=== PATIENT | female | born 1955 | race Caucasian/White ===

== ENCOUNTER 2018-02-17 14:41 | Emergency (ER) | payer OTHER ==
[~2018-02-17] VITALS: Ht 157.5 cm; Wt 62.1 kg
[~2018-02-17 14:41] MED LIST: ALBU90OI; AMOX50; CLON1 PO; LAMO100 PO; METH10; METH10 PO; MODA200; OXYC10ER; OXYC40ER; OXYC5 PO; Oxycodone HCl20 M1 PO; PROACE100; TRAZ50
[2018-02-17 15:38] LABS: BASOPHILS ABSOLUTE AUTO 0.01 K/mm3 (0.00-0.23); BASOPHILS PERCENT AUTO 0 % (0-2); EOSINOPHILS PERCENT AUTO 1 % (0-6); Hematocrit 42.1 % (33.0-51.0); Hemoglobin 14.5 g/dL (11.5-16.0); IMMATURE GRAN ABSOLUTE AUTO 0.02 K/mm3 (0.00-0.10); IMMATURE GRAN PERCENT AUTO 0 % (0-1); LYMPHOCYTES ABSOLUTE AUTO 2.72 K/mm3 (0.84-5.20); LYMPHOCYTES PERCENT AUTO 38 % (21-46); MONOCYTES ABSOLUTE AUTO 0.43 K/mm3 (0.16-1.47); MONOCYTES PERCENT AUTO 6 % (4-13); Mean Corpuscular HGB 32.8 pg (26.0-34.0); Mean Corpuscular HGB Conc 34.4 g/dL (31.5-36.5); Mean Corpuscular Volume 95 fL (80-100); Mean Platelet Volume 11.1 fL (9.1-12.4); NEUTROPHILS ABSOLUTE AUTO 3.89 K/mm3 (1.96-9.15); NEUTROPHILS PERCENT AUTO 54 % (41-73); Platelet Count 211 K/mm3 (150-400); RDW Coefficient Variation 12.2 % (11.7-14.2); RDW Standard Deviation 42.8 fL (35.1-46.3); Red Blood Cell Count 4.42 M/mm3 (3.80-5.20); White Blood Cell Count 7.17 K/mm3 (4.00-11.30)
[2018-02-17 15:56] LABS: Alanine Aminotransfer (ALT/SGP 59 U/L (12-78); Albumin, Blood 3.5 g/dL (3.4-5.0); Albumin/Globulin Ratio 0.8 (0.8-1.8); Alk Phos 85 U/L (50-136); Anion Gap 7 mmol/L (6-16); Aspartate Aminotrans (AST/SGOT 61 U/L (12-37); Bilirubin, Total 0.4 mg/dL (0.1-1.0); Blood Urea Nitrogen 8 mg/dL (8-24); Bun/Creatinine Ratio 11.6 (12.0-20.0); CO2, Blood 25 mmol/L (21-32); Calcium, Blood 9.2 mg/dL (8.5-10.1); Chloride, Blood 105 mmol/L (98-108); Creatinine, Blood 0.69 mg/dL (0.40-1.00); Globulin, Blood 4.6 g/dL (2.2-4.0); Glomerular Filtration Rate >60 (60-); Glucose, Blood 182 mg/dL (70-99); Potassium, Blood 3.1 mmol/L (3.5-5.5); Sodium, Blood 137 mmol/L (136-145); Total Protein, Blood 8.1 g/dL (6.4-8.2)
[2018-02-17] MEDS ORDERED: CLON2 PO (16:12)
[2018-02-17] MEDS ORDERED: FENT50TP TOP (16:14)
== END 2018-02-17 16:38 | disposition left against medical advice (07) ==
LOC: ER 14:41
PROVIDERS: Physician Assistant
DX: S52.572A Other intraarticular fracture of lower end of left radius, initial encounter for closed fracture (principal); S19.9XXA Unspecified injury of neck, initial encounter; S29.9XXA Unspecified injury of thorax, initial encounter; W11.XXXA Fall on and from ladder, initial encounter; Z88.5 Allergy status to narcotic agent; Z79.899 Other long term (current) drug therapy; Z79.891 Long term (current) use of opiate analgesic; I10 Essential (primary) hypertension; J44.9 Chronic obstructive pulmonary disease, unspecified; F17.210 Nicotine dependence, cigarettes, uncomplicated
CPT/HCPCS: 36415; 71101; 72125; 73110; 73130; 80053; 85025; 99284-25

== ENCOUNTER 2018-04-19 19:45 | Emergency (ER) | payer OTHER ==
[~2018-04-19] VITALS: Ht 157.5 cm; Wt 68.0 kg
[~2018-04-19 19:45] MED LIST changes: +CLON2 PO; +Catapres0.1 MG PO; +FENT50TP TOP; +LISI20 PO; +POTASSIUM99 MG PO
[2018-04-19 20:40] LABS: BASOPHILS ABSOLUTE AUTO 0.03 K/mm3 (0.00-0.23); BASOPHILS PERCENT AUTO 0 % (0-2); EOSINOPHILS ABSOLUTE AUTO 0.09 K/mm3 (0.00-0.68); EOSINOPHILS PERCENT AUTO 1 % (0-6); Hematocrit 39.9 % (33.0-51.0); Hemoglobin 13.9 g/dL (11.5-16.0); IMMATURE GRAN ABSOLUTE AUTO 0.07 K/mm3 (0.00-0.10); IMMATURE GRAN PERCENT AUTO 1 % (0-1); LYMPHOCYTES ABSOLUTE AUTO 5.49 K/mm3 (0.84-5.20); LYMPHOCYTES PERCENT AUTO 40 % (21-46); MONOCYTES ABSOLUTE AUTO 1.17 K/mm3 (0.16-1.47); MONOCYTES PERCENT AUTO 9 % (4-13); Mean Corpuscular HGB 33.3 pg (26.0-34.0); Mean Corpuscular HGB Conc 34.8 g/dL (31.5-36.5); Mean Corpuscular Volume 96 fL (80-100); Mean Platelet Volume 11.2 fL (9.1-12.4); NEUTROPHILS ABSOLUTE AUTO 6.77 K/mm3 (1.96-9.15); NEUTROPHILS PERCENT AUTO 50 % (41-73); Platelet Count 206 K/mm3 (150-400); RDW Coefficient Variation 12.5 % (11.7-14.2); RDW Standard Deviation 44.2 fL (35.1-46.3); Red Blood Cell Count 4.17 M/mm3 (3.80-5.20); White Blood Cell Count 13.62 K/mm3 (4.00-11.30)
[2018-04-19 21:00] LABS: Alanine Aminotransfer (ALT/SGP 45 U/L (12-78); Albumin, Blood 3.9 g/dL (3.4-5.0); Alk Phos 102 U/L (50-136); Anion Gap 11 mmol/L (6-16); Aspartate Aminotrans (AST/SGOT 24 U/L (12-37); Bilirubin, Total 0.3 mg/dL (0.1-1.0); Blood Urea Nitrogen 9 mg/dL (8-24); Bun/Creatinine Ratio 12.5 (12.0-20.0); CO2, Blood 21 mmol/L (21-32); Calcium, Blood 9.3 mg/dL (8.5-10.1); Chloride, Blood 105 mmol/L (98-108); Creatinine, Blood 0.72 mg/dL (0.40-1.00); Ethanol (Alcohol), Blood, Med <3 mg/dL; Globulin, Blood 3.9 g/dL (2.2-4.0); Glomerular Filtration Rate >60 (60-); Glucose, Blood 128 mg/dL (70-99); Potassium, Blood 2.6 mmol/L (3.5-5.5); Sodium, Blood 137 mmol/L (136-145); Total Protein, Blood 7.8 g/dL (6.4-8.2)
[2018-04-19] MEDS ORDERED: Depakene250 MG PO (21:15)
[2018-04-19] MEDS ORDERED: Prinivil10 MG PO (21:39)
== END 2018-04-19 21:46 | disposition home or self-care (01) ==
LOC: ER 19:45
PROVIDERS: Emergency Medicine
DX: F32.9 Major depressive disorder, single episode, unspecified (principal); F15.10 Other stimulant abuse, uncomplicated; F17.200 Nicotine dependence, unspecified, uncomplicated; Z88.5 Allergy status to narcotic agent; Z79.899 Other long term (current) drug therapy
CPT/HCPCS: 36415; 80053; 84443; 85025; 99285; G0480

== ENCOUNTER 2018-07-21 05:54 | Emergency (ER) | payer OTHER ==
[~2018-07-21 05:54] MED LIST changes: +Depakene250 MG PO; +Prinivil10 MG PO
== END 2018-07-21 06:26 | disposition left against medical advice (07) ==
LOC: ER 05:54
DX: Z53.21 Procedure and treatment not carried out due to patient leaving prior to being seen by health care provider (principal)

== ENCOUNTER 2018-08-28 06:07 | Emergency (ER) | payer OTHER ==
[~2018-08-28] VITALS: Ht 157.5 cm; Wt 63.5 kg
[2018-08-28] MEDS ORDERED: Veetids 500500 MG PO (07:27)
== END 2018-08-28 07:36 | disposition home or self-care (01) ==
LOC: ER 06:07
DX: I88.9 Nonspecific lymphadenitis, unspecified (principal); J02.9 Acute pharyngitis, unspecified; Z88.5 Allergy status to narcotic agent; Z79.899 Other long term (current) drug therapy; Z79.891 Long term (current) use of opiate analgesic; I10 Essential (primary) hypertension; J44.9 Chronic obstructive pulmonary disease, unspecified; F31.9 Bipolar disorder, unspecified; F17.200 Nicotine dependence, unspecified, uncomplicated
CPT/HCPCS: 70360; 71046; 99283-25

== ENCOUNTER 2019-07-16 16:00 | Inpatient (IN) | payer MEDICARE ==
[~2019-07-16] VITALS: Ht 157.5 cm; Wt 63.3 kg
[~2019-07-16 16:00] MED LIST changes: +Veetids 500500 MG PO
[2019-07-16 16:32] LABS: Hematocrit 37.9 % (33.0-51.0); Hemoglobin 12.1 g/dL (11.5-16.0); Mean Corpuscular HGB 30.9 pg (26.0-34.0); Mean Corpuscular HGB Conc 31.9 g/dL (31.5-36.5); Mean Corpuscular Volume 97 fL (80-100); Mean Platelet Volume 10.8 fL (9.1-12.4); Platelet Count 171 K/mm3 (150-400); RDW Coefficient Variation 14.7 % (11.7-14.2); RDW Standard Deviation 52.9 fL (35.1-46.3); Red Blood Cell Count 3.92 M/mm3 (3.80-5.20); White Blood Cell Count 2.41 K/mm3 (4.00-11.30)
[2019-07-16 16:46] LABS: Alanine Aminotransfer (ALT/SGP 36 U/L (12-78); Albumin, Blood 2.3 g/dL (3.4-5.0); Albumin/Globulin Ratio 0.5 (0.8-1.8); Alk Phos 88 U/L (50-136); Anion Gap 10 mmol/L (6-16); Aspartate Aminotrans (AST/SGOT 39 U/L (12-37); Bilirubin, Total 0.8 mg/dL (0.1-1.0); Blood Urea Nitrogen 18 mg/dL (8-24); Bun/Creatinine Ratio 24.1 (12.0-20.0); CO2, Blood 21 mmol/L (21-32); Calcium, Blood 10.4 mg/dL (8.5-10.1); Chloride, Blood 102 mmol/L (98-108); Creatinine, Blood 0.75 mg/dL (0.40-1.00); Glomerular Filtration Rate >60 (60-); Glucose, Blood 91 mg/dL (70-99); Potassium, Blood 3.4 mmol/L (3.5-5.5); Sodium, Blood 133 mmol/L (136-145); Total Protein, Blood 7.3 g/dL (6.4-8.2); Troponin I <0.015 ng/mL (0.000-0.040)
[2019-07-16 17:21] LABS: International Normalized Ratio 1.08; Prothrombin Time Results 11.5 Sec (9.7-11.5)
[2019-07-16 17:24] LABS: BAND PERCENT MAN 8 % (0-8); BASOPHILS PERCENT MAN 0 % (0-2); EOSINOPHILS PERCENT MAN 0 % (0-6); LYMPHOCYTES PERCENT MAN 17 % (21-46); MONOCYTES ABSOLUTE MAN 0.12 K/mm3 (0.16-1.47); MONOCYTES PERCENT MAN 5 % (4-13); NEUTROPHILS ABSOLUTE MAN 1.87 K/mm3 (1.96-9.15); SEG NEUTROPHILS PERCENT MAN 70 % (41-73); TOTAL CELLS COUNTED 100
[2019-07-16 18:46] LABS: Influenza A Negative (NEGATIVE); Influenza B Negative (NEGATIVE)
[2019-07-16] MEDS ORDERED: GABA300 (19:37)
[2019-07-17 03:57] LABS: BASOPHILS ABSOLUTE AUTO 0.05 K/mm3 (0.00-0.23); BASOPHILS PERCENT AUTO 1 % (0-2); Hematocrit 34.6 % (33.0-51.0); Hemoglobin 11.1 g/dL (11.5-16.0); LYMPHOCYTES ABSOLUTE AUTO 0.28 K/mm3 (0.84-5.20); LYMPHOCYTES PERCENT AUTO 5 % (21-46); MONOCYTES ABSOLUTE AUTO 0.29 K/mm3 (0.16-1.47); MONOCYTES PERCENT AUTO 5 % (4-13); Mean Corpuscular HGB 30.4 pg (26.0-34.0); Mean Corpuscular HGB Conc 32.1 g/dL (31.5-36.5); Mean Corpuscular Volume 95 fL (80-100); Mean Platelet Volume 11.3 fL (9.1-12.4); NRBC ABSOLUTE 0.02 K/mm3 (0.00-0.02); NRBC Auto 0.3 /100 WBC (0.0-0.2); Platelet Count 191 K/mm3 (150-400); RDW Coefficient Variation 14.8 % (11.7-14.2); RDW Standard Deviation 51.8 fL (35.1-46.3); Red Blood Cell Count 3.65 M/mm3 (3.80-5.20); White Blood Cell Count 6.08 K/mm3 (4.00-11.30)
[2019-07-17 03:58] LABS: EOSINOPHILS PERCENT AUTO 0 % (0-6); IMMATURE GRAN ABSOLUTE AUTO 0.04 K/mm3 (0.00-0.10); IMMATURE GRAN PERCENT AUTO 1 % (0-1); NEUTROPHILS ABSOLUTE AUTO 5.42 K/mm3 (1.96-9.15); NEUTROPHILS PERCENT AUTO 89 % (41-73)
[2019-07-17 04:15] LABS: Anion Gap 11 mmol/L (6-16); Blood Urea Nitrogen 14 mg/dL (8-24); Bun/Creatinine Ratio 21.6 (12.0-20.0); CO2, Blood 18 mmol/L (21-32); Calcium, Blood 9.4 mg/dL (8.5-10.1); Chloride, Blood 107 mmol/L (98-108); Creatinine, Blood 0.65 mg/dL (0.40-1.00); Glomerular Filtration Rate >60 (60-); Glucose, Blood 81 mg/dL (70-99); Potassium, Blood 3.6 mmol/L (3.5-5.5); Sodium, Blood 136 mmol/L (136-145)
[2019-07-17 04:21] LABS: BAND PERCENT MAN 23 % (0-8); BASOPHILS PERCENT MAN 0 % (0-2); EOSINOPHILS PERCENT MAN 0 % (0-6); LYMPHOCYTES ABSOLUTE MAN 0.42 K/mm3 (0.84-5.20); LYMPHOCYTES PERCENT MAN 7 % (21-46); METAMYELOCYTE ABSOLUTE MAN 0.06 K/mm3 (0.00-0.00); METAMYELOCYTE PERCENT MAN 1 % (0-0); MONOCYTES ABSOLUTE MAN 0.48 K/mm3 (0.16-1.47); MONOCYTES PERCENT MAN 8 % (4-13); SEG NEUTROPHILS PERCENT MAN 61 % (41-73); TOTAL CELLS COUNTED 100
--- NOTE | 2019-07-17 06:23 | NUR ---
PT ALERT. FOLLOWS COMMANDS, WEAK AT BASELINE. SINUS TACHY WITH PVC'S. SOB AND
[2019-07-17 07:56] LABS: Magnesium, Blood 1.6 mg/dL (1.6-2.4); Phosphorus, Blood 3.4 mg/dL (2.5-4.9)
--- NOTE | 2019-07-17 08:00 | NUR ---
INITIAL ASSESMENT PT ALEERT AND ORIENT, ANXIOUS BUT FOLLOWING COMMANDS. C/O GENERALIZED PAIN AND SUPPORT AND REPOSITIONED. VSS, ST WITH OCCASIONAL PVCS. HYPERTENSIVE AT TIMES AND AFEBRILE WITH PAPL PULSES. 6LNC WITH SATS WNL IN THE MID TO LOW 90S. NONPRODUCTIVE WET COUGH AND COURSE AND DIM BILAT. WILL WEAN O2 TOLERATED. VOID YELLOW URINE VIA BEDPAN AND NO BM. WILL ADVANCE DIET TOLERATED BUT TAKING PO AM MED PAS. WILL CONT TO MONITOR
--- NOTE | 2019-07-17 10:04 | NUR ---
ECHOCARDIOGRAM COMPLETED
[2019-07-17 11:50] LABS: Adenovirus Not Detected (NOT DETECT); Coronavirus 229E Not Detected (NOT DETECT); Coronavirus HKU1 Not Detected (NOT DETECT); Coronavirus NL63 Not Detected (NOT DETECT); Coronavirus OC43 Not Detected (NOT DETECT); Human Metapneumovirus Not Detected (NOT DETECT); Human Rhinovirus/Enterovirus Not Detected (NOT DETECT); Influenza A Not Detected (NOT DETECT); Influenza A/2009-H1 Not Detected (NOT DETECT); Influenza A/H1 Not Detected (NOT DETECT); Influenza A/H3 Not Detected (NOT DETECT)
[2019-07-17 11:51] LABS: Bordetella pertussis Not Detected (NOT DETECT); Chlamydophila pneumoniae Not Detected (NOT DETECT); Influenza B Not Detected (NOT DETECT); Mycoplasma pneumoniae Not Detected (NOT DETECT); Parainfluenza Virus 1 Not Detected (NOT DETECT); Parainfluenza Virus 2 Not Detected (NOT DETECT); Parainfluenza Virus 3 Not Detected (NOT DETECT); Parainfluenza Virus 4 Not Detected (NOT DETECT); Respiratory Syncytial Virus Not Detected (NOT DETECT)
--- NOTE | 2019-07-17 18:01 | NUR ---
SHIFT SUMMARY.... ASSUMED CARE OF PT APROX 1615, PT WAS ICU TRANSFER. PT WAS ABLE TO SCOOT HERSELF FROM THE ICU BED TO PCU BED. PT IS ON 4L NC WITH O2 SATS >91%. PT'S VS STABLE AT THIS TIME. PT IS A&Ox4. CALL LIGHT IN REACH WILL CONTINUE TO MONITOR UNTIL REPORT IS GIVEN TO ONCOMING RN.
[2019-07-18 04:03] LABS: Hematocrit 33.6 % (33.0-51.0); LYMPHOCYTES ABSOLUTE AUTO 0.36 K/mm3 (0.84-5.20); LYMPHOCYTES PERCENT AUTO 2 % (21-46); MONOCYTES ABSOLUTE AUTO 0.37 K/mm3 (0.16-1.47); MONOCYTES PERCENT AUTO 2 % (4-13); Mean Corpuscular HGB 31.1 pg (26.0-34.0); Mean Corpuscular HGB Conc 32.7 g/dL (31.5-36.5); Mean Corpuscular Volume 95 fL (80-100); Mean Platelet Volume 11.2 fL (9.1-12.4); Platelet Count 220 K/mm3 (150-400); RDW Coefficient Variation 15.1 % (11.7-14.2); RDW Standard Deviation 53.3 fL (35.1-46.3); Red Blood Cell Count 3.54 M/mm3 (3.80-5.20); White Blood Cell Count 15.47 K/mm3 (4.00-11.30)
[2019-07-18 04:10] LABS: BASOPHILS PERCENT AUTO 0 % (0-2); EOSINOPHILS PERCENT AUTO 0 % (0-6); IMMATURE GRAN ABSOLUTE AUTO 0.09 K/mm3 (0.00-0.10); IMMATURE GRAN PERCENT AUTO 1 % (0-1); NEUTROPHILS ABSOLUTE AUTO 14.65 K/mm3 (1.96-9.15); NEUTROPHILS PERCENT AUTO 95 % (41-73)
[2019-07-18 04:22] LABS: Albumin, Blood 2.3 g/dL (3.4-5.0); Anion Gap 10 mmol/L (6-16); Blood Urea Nitrogen 19 mg/dL (8-24); Bun/Creatinine Ratio 34.7 (12.0-20.0); CO2, Blood 20 mmol/L (21-32); Calcium, Blood 10.2 mg/dL (8.5-10.1); Chloride, Blood 106 mmol/L (98-108); Creatinine, Blood 0.55 mg/dL (0.40-1.00); Glomerular Filtration Rate >60 (60-); Glucose, Blood 145 mg/dL (70-99); Phosphorus, Blood 2.2 mg/dL (2.5-4.9); Potassium, Blood 3.4 mmol/L (3.5-5.5); Sodium, Blood 136 mmol/L (136-145)
--- NOTE | 2019-07-18 05:27 | NUR ---
SHIFT SUMMARY PT. VERY ANXIOUS AND PAINFUL T/O THE NIGHT. ATIVAN AND FENTANYL GIVEN PER EMAR. PT. STATED MINIMAL RELIEF WITH PAIN. RESTED INTERMITTENTLY T/O THE SHIFT. PT. TACHYPNEIC, BREATHING TX'S AND SCHEDULED MEDS GIVEN. SLIGHT IMPROVEMENT NOTED ONCE PT. ABLE TO FALL ASLEEP. PT. WEAK, UNSTEADY, AND HAS SOB WITH EXERTION. ATTEMPTED TO GET OOB DURING THE NIGHT W/O ASSISTANCE. CALL LIGHT WITHIN REACH, SIDE RAILS UP X2, AND BED ALARM ON. WILL CONT TO MONITOR.
--- NOTE | 2019-07-18 07:57 | NUR ---
AM NOTE... ASSUMED CARE OF PT APROX 0700, PT IS A&Ox4 BUT CONFUSED AT THE SAME TIME IT SEEMS. PT IS ACCUSING STAFF OF "KEEPING MY PAIN MEDS AWAY AND LYING ABOUT THEM." AND "YOU ALL ARE TAKING GREAT SAM IN MY SUFFERING." PT HAS ATTEMPTED TO CRAWL OUT OF BED TO "GO SEE MY SON DOWN THE ANG." PT IS ALSO REFUSING AM MEDS BECAUSE SHE FEELS STAFF ARE "ALL AGAINST ME." PT'S VS STABLE AT THIS TIME, SINUS TACH IN THE LOW 100'S PER HEAVY EQUIPMENT OPERATOR/PAVER, NO EDEMA NOTED ON ASSESSMENT. PT IS ON 3L NC WITH O2 SATS AT 93-94%. L/S FINE CRACKLES NOTED IN THE MID AND LOWER BASES, CLEAR IN THE UPPER LOBES. PT'S RR IS 26-30'S, EVEN AND A SLIGHTLY LABORED, PT IS ALSO MAKING MOANING/GRUNTING NOISES WITH BREATHING. PT HAS BEEN CALLING OUT "I WANT TO GO HOME I WANT TO GO HOME." CALL LIGHT IN REACH WILL CONTINUE TO MONITOR.
--- NOTE | 2019-07-18 13:30 | NUR ---
Karal pt. in bed and her nurse in the room attending to her needs offered prayers.
--- NOTE | 2019-07-18 14:42 | NUR ---
PT UPDATE... PT WAS GIVEN IV LASIX D/T BNP OF 1496 AND INCREASED SOB. PT BECAME VERY ANXIOUS WHEN SHE HAD TO VOID, PT JUMPED OUT OF BED, THE BEDALARM WENT OFF AND THIS RN RAN INTO THE ROOM. PT WAS YELLING AND SAYING SHE HAD TO PEE, BSC WAS OBTAINED FOR THE PT. PT SAT ON THE BSC AND BEGAN TO SAY THINGS LIKE: "I AM SO TIRED OF BEING IN PAIN ALL THE TIME, I JUST WANT TO GO HOME AND !" "I JUST WANT TO LEAVE THIS PLACE SO I CAN KILL MYSELF AND BE OUT OF PAIN!" THIS RN ASKED THE PT IF SHE HAD A PLAN TO KILL HERSELF, THE PT STATED THAT SHE DID NOT BUT THAT "I AM JUST SO TIRED OF HURTING ALL THE TIME. I AM JUST DONE, I WANT TO BE DONE." PT WAS HELPED BACK INTO BED AND MADE COMFORTABLE. PROVIDER WAS MADE AWARE OF PT'S COMMENTS AND NEW MEDICATION ORDERS WERE OBTAINED. PT HAS BEEN MEDICATED PER EMAR FOR PAIN AND ANXIETY, HOWEVER PT STATS THAT THE PAIN MEDICATIONS HARDLY TOUCH HER PAIN AT ALL. PT STATED "THE ONLY THING THAT WORKS FOR MY PAIN IS OXYCONTIN. " CALL LIGHT IN REACH WILL CONTINUE TO MONITOR.
--- NOTE | 2019-07-18 16:36 | NUR ---
Spoke with Dr Hubbard and Bedside RN Ember. Discussed case and concerns. Pt resting in bed and is A&OX4. Pt reports 6/10 pain. Pt reports she does not want to wear her oxygen right now. Currently she is on room air with saturations at 91%. Pt's son is at bedside and he reports Pt lives with him. Son is Pt's primary caregiver. At baseline Pt does not wear oxygen and is independent of her ADLs. Engaged in therapeutic discussion regarding [facility]. Educated on disease process including trajectory of disease. Educated on the importance of compliance with doctor recommendations and routine conversations with PCP regarding disease process in order to plan accordingly. Pt reports no intension of quitting smoking. Educated on the implications of continued smoking and speeding up the disease process. Pt V/U of education. Discussed completing POLST and educated on life sustaining measures including risk factors. Pt reports that she does not want CPR and would not want to be intubated. Son reports he and Pt will complete POLST together at a later time. Son also expresses concerns regarding wether Pt truly wants pain medications and states she took her self off pain medications quite sometime ago. No other concerns reported at this time. Palliative Care will remain available and [facility].
--- NOTE | 2019-07-18 17:05 | NUR ---
SHIFT SUMMARY... NO NEGATIVE EVENTS NOTED THIS SHIFT. PT WAS GIVEN LASIX AND HAS DIURESED WELL. PT'S O2 HAS BEEN TITRATED FROM 4L TO 2L AND RA AT TIMES. PT'S VS HAVE BEEN STABLE T/O SHIFT. PT'S SON HAS BEEN AT THE BEDSIDE THIS AFTERNOON. PT HAS BEEN IMPULSIVE ABOUT GETTING OUT OF BED AND WAITING ON STAFF, BED ALARM IS ON. MEDICATION CHANGES HAVE BEEN MADE IN AN ATTEMPT TO CONTROL THE PT'S CHRONIC AND ACUTE PAIN BETTER. PALLIATIVE CARE HAS BEEN INVOLVED WITH THE PT AND SON ABOUT CODE STATUS AND ADVANCE DIRECTIVES. CALL LIGHT IN REACH WILL CONTINUE TO MONITOR UNTIL REPORT IS GIVE TO ONCOMING RN.
--- NOTE | 2019-07-19 00:35 | NUR ---
1929 - BEDSIDE REPORT REC'D/ PT PLEASANT AND COOPERATIVE. ASKING ABOUT NIGHTIME MEDS AND PAIN MEDS. DISCUSSED PLAN FOR THE NIGHT. VSS. CALL LIGHT IN REACH. PT ASSISTED TO BSC. O2 NC IN PLACE. PT APPEARS GROGGY BUT ALERT, SPEECH SLOW AND SLURRED. CALL LIGHT IN REACH. 2114 - PT NAPPED FOR AN HOUR. THOUGHT IT WAS MORNING, WOKE UP FEELING RESTED. FAMILY HERE TO VISIT. PM MEDS GIVEN. PT ASSISTED TO BSC. PLEASANT AND FOLLOWS COMMANDS. SNACKS PROVIDED REQUESTED. 0000 - PT STATES SHE IS HAVING A PANIC ATTACK AND WANTS TO GO AROUND THE CORNER AND SMOKE. PT REORIENTED TO HOSPITAL ENVIORNMENT. SHE THEN BECOMES INTENT ON GOING HOME OR GOING TO SMOKE. SITTING AT EDGE OF BED WOBBLING AND REFUSES TO LIE BACK DOWN. OFFERED TO ASSIST HER TO BSC. SHE AGREES BUT CONTINUES TO SIT FOR 20 MIN NOT WANTING TO GO BACK TO BED. PT ASSISTED TO BED WITH HELP OF CREW FOREMAN. ATIVAN GIVEN FOR "PANIC ATTACK" PT STATES "WE ARE GOING TO HAVE PROBLEMS TONIGHT" SPEECH MUMBLED, EYES CLOSED, WEAK AND DOZES OFF BUT FIGHTS SLEEP. 0 - PT APPEARS TO BE SLEEPING. LIGHTS OFF. LYING ON SIDE WITH PILLOWS, NO LONGER LOOKING LIKE SHE'S GOING TO TRY TO GET OUT OF BED. ALARM IN PLACE. CALL LIGHT IN REACH. IV ABX INFUSING.
[2019-07-19 03:45] LABS: Hematocrit 31.1 % (33.0-51.0); Hemoglobin 10.2 g/dL (11.5-16.0); Mean Corpuscular HGB 30.9 pg (26.0-34.0); Mean Corpuscular HGB Conc 32.8 g/dL (31.5-36.5); Mean Corpuscular Volume 94 fL (80-100); Mean Platelet Volume 10.5 fL (9.1-12.4); Platelet Count 233 K/mm3 (150-400); RDW Coefficient Variation 14.8 % (11.7-14.2); RDW Standard Deviation 51.4 fL (35.1-46.3); White Blood Cell Count 17.69 K/mm3 (4.00-11.30)
[2019-07-19 04:04] LABS: Anion Gap 10 mmol/L (6-16); Blood Urea Nitrogen 30 mg/dL (8-24); Bun/Creatinine Ratio 38.1 (12.0-20.0); CO2, Blood 22 mmol/L (21-32); Calcium, Blood 10.2 mg/dL (8.5-10.1); Chloride, Blood 104 mmol/L (98-108); Creatinine, Blood 0.79 mg/dL (0.40-1.00); Glomerular Filtration Rate >60 (60-); Glucose, Blood 141 mg/dL (70-99); Potassium, Blood 3.6 mmol/L (3.5-5.5); Sodium, Blood 136 mmol/L (136-145)
[2019-07-19 05:31] LABS: BAND PERCENT MAN 2 % (0-8); BASOPHILS PERCENT MAN 0 % (0-2); EOSINOPHILS PERCENT MAN 0 % (0-6); LYMPHOCYTES ABSOLUTE MAN 0.53 K/mm3 (0.84-5.20); LYMPHOCYTES PERCENT MAN 3 % (21-46); MONOCYTES ABSOLUTE MAN 0.53 K/mm3 (0.16-1.47); MONOCYTES PERCENT MAN 3 % (4-13); NEUTROPHILS ABSOLUTE MAN 16.62 K/mm3 (1.96-9.15); SEG NEUTROPHILS PERCENT MAN 92 % (41-73); TOTAL CELLS COUNTED 100
--- NOTE | 2019-07-19 06:06 | NUR ---
NO SIG CHANGES THIS SHIFT. PT COOPERATIVE MOST OF THE NIGHT EXCEPT WHEN SHE WAS DETERMINED TO GO OUTSIDE AND SMOKE. LACTIC ACID WAS ELEVATED THIS MORNING SLIGHTLY FROM YESTERDAY. DR ORTIZ NOTIFIED WITH NO NEW ORDERS. WILL CONTINUE TO MONITOR, DOCUMENT ANY CHANGES AND WILL REPORT TO DAYSHIFT RN.
--- NOTE | 2019-07-19 07:39 | NUR ---
AM NOTE... ASSUMED CARE OF PT APROX 0700. PT IS A&Ox4 BUT CONFUSED/LABILE AT TIMES. PT WAS ADMITTED FOR SEPSIS PNA. PT IS CURRENLY ON 3L NC WITH O2 SATS AT 94%. PT'S BASELINE IS RA. PT'S OTHER VS STABLE AT THIS TIME. PT IS IN SR/ST W/PVCS 90'S-100'S. NO EDEMA NOTED ON ASSESSMENT. L/S COARSE RHONCHI HEARD T/O LOBES. RR 32 EVEN AND UNLABORED. BT PRESENT AND HYPOACTIVE, ABD IS SOFT AND NONTENDER TO PALP. WILL CONTINUE TO MONITOR.
--- NOTE | 2019-07-19 14:14 | NUR ---
Pt. in bed and her nurse in the room attending to her needs offered prayers
--- NOTE | 2019-07-19 19:03 | NUR ---
SHIFT SUMMARY.... NO ACUTE NEGATIVE CHANGES NOTED THIS SHIFT. PT'S VS STABLE. PT MEDICATED FOR PAIN PER EMAR. PT UP TO [facility] SBA TO VOID. NO BM THIS SHIFT. PT HAS BEEN ON 2-3L NC WITH O2 STATS >91%. CALL LIGHT IN REACH WILL CONTINUE TO MONITOR UNTIL REPORT IS GIVEN TO ONCOMING RN.
--- NOTE | 2019-07-19 21:26 | NUR ---
This student nurse has permission to access patient information/
--- NOTE | 2019-07-20 03:48 | NUR ---
EOS: PATIENT SLEPT THRU MUCH OF THE NOC SHIFT; SHE WAS VSS AND RECEVED ONLY HER SCHEDULED MEDS PER EMAR. SHE WAS FOUND TO BE DESATURATING TO 85% AROUND 0345AM AND RT WAS CALLED. SHE RECVD A BREATHING TREATMENT AND WAS PLACED ON 6L HI EDE N/C SHE THEN GOT OOB TO BSC AND VOIDED 450 ML. SHE HAD SOME SIPS OF WATER AND THEN BTB WITH ASSIST OF 2. SHE IS RESTING COMFORTABLY AT THIS TIME IN NO APPARENT DISTRESS.
[2019-07-20 03:55] LABS: Hematocrit 34.3 % (33.0-51.0); Hemoglobin 11.4 g/dL (11.5-16.0); Mean Corpuscular HGB 31.1 pg (26.0-34.0); Mean Corpuscular HGB Conc 33.2 g/dL (31.5-36.5); Mean Corpuscular Volume 94 fL (80-100); Mean Platelet Volume 10.9 fL (9.1-12.4); Platelet Count 266 K/mm3 (150-400); RDW Coefficient Variation 14.8 % (11.7-14.2); RDW Standard Deviation 51.6 fL (35.1-46.3); Red Blood Cell Count 3.66 M/mm3 (3.80-5.20); White Blood Cell Count 9.99 K/mm3 (4.00-11.30)
[2019-07-20 04:15] LABS: Anion Gap 8 mmol/L (6-16); Blood Urea Nitrogen 20 mg/dL (8-24); Bun/Creatinine Ratio 32.7 (12.0-20.0); CO2, Blood 28 mmol/L (21-32); Calcium, Blood 9.8 mg/dL (8.5-10.1); Chloride, Blood 98 mmol/L (98-108); Creatinine, Blood 0.61 mg/dL (0.40-1.00); Glomerular Filtration Rate >60 (60-); Glucose, Blood 83 mg/dL (70-99); Phosphorus, Blood 2.3 mg/dL (2.5-4.9); Potassium, Blood 3.2 mmol/L (3.5-5.5); Sodium, Blood 134 mmol/L (136-145)
[2019-07-20 05:37] LABS: BAND PERCENT MAN 1 % (0-8); BASOPHILS PERCENT MAN 0 % (0-2); EOSINOPHILS PERCENT MAN 0 % (0-6); LYMPHOCYTES ABSOLUTE MAN 1.19 K/mm3 (0.84-5.20); LYMPHOCYTES PERCENT MAN 12 % (21-46); MONOCYTES ABSOLUTE MAN 0.89 K/mm3 (0.16-1.47); MONOCYTES PERCENT MAN 9 % (4-13); MYELOCYTE ABSOLUTE MAN 0.19 K/mm3 (0.00-0.00); MYELOCYTE PERCENT MAN 2 % (0-0); NEUTROPHILS ABSOLUTE MAN 7.69 K/mm3 (1.96-9.15); SEG NEUTROPHILS PERCENT MAN 76 % (41-73); TOTAL CELLS COUNTED 100
--- NOTE | 2019-07-20 09:43 | NUR ---
PCU DAYSHIFT ASSUMED CARE PATIENT LETHARGIC - REMAINS DROWSY AND VERY SLOW TO RESPOND EVEN WITH TOUCH AND LOUD VERBAL STIMULATION. DISCUSSED FINDINGS WITH PROVIDER MD HERNANDEZ - MEDICATION CHANGED (SEE EMAR). PATIENT IS ON 7 LPM HIGH FLOW CANNULA, DEEPLY ASLEEP BUT CAN VERBALIZE THAT SHE IS IN THE HOSPITAL - UNABLE TO HOLD A CONVERSATION DUE TO SEDATION. LUNG SOUND CLEAR TO DIM - HR REMAINS 70'S NSR WITH NO EVENTS PER STEWARD/STEWARDESS CHIEF CARGO VESSEL. PATIENT SBA TO BEDSIDE COMMODE - DID GET UP AT APPROX 085 WITH PCU TECH. BED ALARM ON, CALL LIGHT W/I REACH; WILL CONTINUE TO MONITOR.
--- NOTE | 2019-07-20 17:35 | NUR ---
HIGH RISK SUICIDE PATIENT LETHARGIC AND REFUSED CARE T/O DAY. SI ASSESSMENT COMPLETED AND PATIENT VERBALIZED THAT SHE IS IN A CONSTANT STATE OF SI THOUGHTS AND PLANS. SITTER WITH PATIENT AND PATIENT TRANSFERED TO ROOM 3 FOR VIDEO MONITORING. TELE PSYC CONSULT PLACED MD HERNANDEZ NOTIFIED.
--- NOTE | 2019-07-20 19:04 | NUR ---
Clinical Visit: Brief visit with pt in follow up with symptom managment and POLST form. Pt has just switched rooms and is settling in. She appears drowsy, apparently she has slept all day. She now has a sitter in the room for suicide risk. Pt reports 8/10 pain, nurse is bedside and is giving medication. She also reports extreme anxiety. Pt has medical history of bipolar disorder and PTSD. Son has not been in today, per nurse. POLST form is not on chart or in the room. Will follow up with this tomorrow. Discussed with nurse Lela. Reviewed care and collaborated on care plan. Will remain available.
--- NOTE | 2019-07-20 19:36 | NUR ---
PCU DAYSHIFT SUMMARY PATIENT MORE ALERT AND AWAKE, SITTING ON SIDE OF BED. VERBALIZED SITUATION. ORIENTED TO SELF. REPORTS THAT PAIN IS ALMOST BERABLE AT 6/10 AFTER ULTRAM GIVEN. PATIENT STILL REFUSES TO TAKE A SHOWER - THIS RN JOKED WITH PATIENT THAT WE WOULD BE MAKING A SHOWER A PRIORITY IN THE AM. PATIENT EDUCATED TO SITTER AT BEDSIDE AND PLAN OF CARE DURING IN ROOM REPORT TO NOC SHIFT RN. PATIENT VERBALIZED UNDERSTANDING OF PLAN OF CARE. PATIENT TITRATED DOWN TO 3.5 LPM NC WHILE SITTING UP AT SIDE OF BED. HEART RATE REMAINS NSR 70-90'S WITH NO CARDIAC EVENTS NOTED PER MANAGER MASSAGE DEPARTMENT. PATIENT DENIES ANY NEEDS AT THIS TIME. CALL LIGHT W/I REACH.
--- NOTE | 2019-07-20 19:52 | NUR ---
RECEIVD REPORT FROM OMAR HERNANDEZ. ASSUMED CARE OF PT. SITTING UP ON EDGE OF BED IN NO ACUTE DISTRESS. DENIES ANY THOUGHTS OF SELF HARM AT THIS TIME. SITTER AT BEDSIDE. WILL CONTINUE TO MONITOR.
--- NOTE | 2019-07-21 03:30 | NUR ---
PT STATES SHE IS HAVING CP AND SOB. RESPIRATORY THERAPY CALLED FOR BREATHING TX. WILL CONTINUE TO MONITOR AND REASSESS.
[2019-07-21 03:45] LABS: Hematocrit 37.2 % (33.0-51.0); Hemoglobin 11.9 g/dL (11.5-16.0); Mean Corpuscular HGB 30.5 pg (26.0-34.0); Mean Corpuscular Volume 95 fL (80-100); Mean Platelet Volume 10.6 fL (9.1-12.4); Platelet Count 243 K/mm3 (150-400); RDW Coefficient Variation 14.8 % (11.7-14.2); RDW Standard Deviation 51.6 fL (35.1-46.3); White Blood Cell Count 9.75 K/mm3 (4.00-11.30)
[2019-07-21 03:57] LABS: Alanine Aminotransfer (ALT/SGP 46 U/L (12-78); Albumin, Blood 2.1 g/dL (3.4-5.0); Albumin/Globulin Ratio 0.4 (0.8-1.8); Alk Phos 202 U/L (50-136); Anion Gap 7 mmol/L (6-16); Aspartate Aminotrans (AST/SGOT 38 U/L (12-37); Bilirubin, Total 0.4 mg/dL (0.1-1.0); Blood Urea Nitrogen 15 mg/dL (8-24); Bun/Creatinine Ratio 29.9 (12.0-20.0); CO2, Blood 29 mmol/L (21-32); Calcium, Blood 9.6 mg/dL (8.5-10.1); Chloride, Blood 95 mmol/L (98-108); Globulin, Blood 4.8 g/dL (2.2-4.0); Glomerular Filtration Rate >60 (60-); Glucose, Blood 114 mg/dL (70-99); Magnesium, Blood 1.7 mg/dL (1.6-2.4); Phosphorus, Blood 3.2 mg/dL (2.5-4.9); Potassium, Blood 3.5 mmol/L (3.5-5.5); Sodium, Blood 131 mmol/L (136-145); Total Protein, Blood 6.9 g/dL (6.4-8.2)
--- NOTE | 2019-07-21 04:45 | NUR ---
PT ASLEEP COMFORTABLY AT THIS TIME, NO FURTHER S/S RESPIRATORY DISTRESS NOTED.
[2019-07-21 05:19] LABS: BAND PERCENT MAN 2 % (0-8); BASOPHILS PERCENT MAN 0 % (0-2); EOSINOPHILS ABSOLUTE MAN 0.09 K/mm3 (0.00-0.68); EOSINOPHILS PERCENT MAN 1 % (0-6); LYMPHOCYTES ABSOLUTE MAN 1.17 K/mm3 (0.84-5.20); LYMPHOCYTES PERCENT MAN 12 % (21-46); MONOCYTES ABSOLUTE MAN 0.78 K/mm3 (0.16-1.47); MONOCYTES PERCENT MAN 8 % (4-13); MYELOCYTE ABSOLUTE MAN 0.19 K/mm3 (0.00-0.00); MYELOCYTE PERCENT MAN 2 % (0-0); SEG NEUTROPHILS PERCENT MAN 75 % (41-73); TOTAL CELLS COUNTED 100
--- NOTE | 2019-07-21 07:45 | NUR ---
PT SITTING ON EDGE OF BED COMFORTABLY, NO SIGNS OF DISTRESS NOTED. WAS MONITORED EVERY 1-2 HOURS WITH NEEDS MET, DENIES ANY NEEDS AT THIS TIME. CALL LIGHT AND POSSESSIONS IN REACH, BED IN LOW POSITION.
--- NOTE | 2019-07-21 18:30 | NUR ---
PCU DAYSHIFT SUMMARY PATIENT REMAINED ALERT TO SELF AND LOCATION T/O SHIFT. PATIENT WAS WILLING AND ABLE TO GET UP AND SHOWER TODAY WHICH WAS A SUCCESS FOR THE PATIENT IT MADE HER FEEL BETTER. PATIENT IS CONTINUING TO COUGH UP RED/BROWN TINGED SPUTUM. RESP E/U AT REST. PATIENT REMAINS TO REQUIRE 3-4 LPM HIGH FLOW OXYGEN. PATIENT REPORTS ONGOING BACK PAIN AND HEADACHES - RELIEVED WITH MEDICATIONS PER EMAR. PATIENT REMAINED ON CONTINUOUS VIDEO MONITORING FOR SI T/O SHIFT. LUNGS SOUNDS CLEAR TO DIM. PATIENT REMAINS IN NSR IN THE 70-90'S T/O SHIFT. PATIENT RESTFUL AT THIS TIME, UP IN CHAIR. WILL CONTINUE TO MONITOR AND GIVE REPORT TO NOC SHIFT RN. CALL LIGHT W/I REACH.
--- NOTE | 2019-07-21 19:10 | NUR ---
CALLED ZAINAB IN REMOTE MONITORING. PT COMING THROUGH ON MONITOR AT THIS TIME.
--- NOTE | 2019-07-21 19:10 | NUR ---
RECEIVED REPORT FROM OMAR HERNANDEZ. ASSUMED CARE OF PT. IN NO ACUTE DISTRESS. RESTING COMFORTABLY AT THIS TIME. CALL LIGHT AND REACH, ENVIRONMENT FREE FROM HARMFUL OBJECTS. BED ALARM ACTIVATED. WILL CONTINUE TO MONITOR.
[2019-07-22 04:46] LABS: Hematocrit 33.9 % (33.0-51.0); Hemoglobin 10.7 g/dL (11.5-16.0); Mean Corpuscular HGB 30.2 pg (26.0-34.0); Mean Corpuscular HGB Conc 31.6 g/dL (31.5-36.5); Mean Corpuscular Volume 96 fL (80-100); Mean Platelet Volume 10.9 fL (9.1-12.4); Platelet Count 309 K/mm3 (150-400); RDW Coefficient Variation 14.6 % (11.7-14.2); RDW Standard Deviation 51.1 fL (35.1-46.3); Red Blood Cell Count 3.54 M/mm3 (3.80-5.20); White Blood Cell Count 10.39 K/mm3 (4.00-11.30)
[2019-07-22 05:10] LABS: Anion Gap 5 mmol/L (6-16); Blood Urea Nitrogen 17 mg/dL (8-24); Bun/Creatinine Ratio 33.6 (12.0-20.0); CO2, Blood 30 mmol/L (21-32); Chloride, Blood 98 mmol/L (98-108); Creatinine, Blood 0.51 mg/dL (0.40-1.00); Glomerular Filtration Rate >60 (60-); Glucose, Blood 94 mg/dL (70-99); Potassium, Blood 3.8 mmol/L (3.5-5.5); Sodium, Blood 133 mmol/L (136-145)
[2019-07-22 05:18] LABS: BAND PERCENT MAN 3 % (0-8); BASOPHILS PERCENT MAN 0 % (0-2); EOSINOPHILS PERCENT MAN 1 % (0-6); LYMPHOCYTES ABSOLUTE MAN 1.55 K/mm3 (0.84-5.20); LYMPHOCYTES PERCENT MAN 15 % (21-46); METAMYELOCYTE PERCENT MAN 2 % (0-0); MONOCYTES ABSOLUTE MAN 0.83 K/mm3 (0.16-1.47); MONOCYTES PERCENT MAN 8 % (4-13); MYELOCYTE PERCENT MAN 2 % (0-0); NEUTROPHILS ABSOLUTE MAN 7.48 K/mm3 (1.96-9.15); SEG NEUTROPHILS PERCENT MAN 69 % (41-73); TOTAL CELLS COUNTED 100
--- NOTE | 2019-07-22 05:45 | NUR ---
PT C/O SOB AND CHEST PAIN 02/20. O2 INCREASED TO 5L/NC. ASSISTED PT TO SIT UP AT EDGE OF BED IN POSITION OF COMFORT. O2 SATS STABLE >90%. WILL CONTINUE TO MONITOR.
--- NOTE | 2019-07-22 06:30 | NUR ---
PT ASLEEP AT THIS TIME, NO FURTHER S/S SOB OR CHEST PAIN NOTED. CALL LIGHT AND POSSESSIONS IN REACH, BED IN LOW POSITION WITH BED ALARM ACTIVATED.
--- NOTE | 2019-07-22 07:00 | NUR ---
PT REMAINS ASLEEP AT THIS TIME, NO S/S ACUTE DISTRESS NOTED. WAS MONITORED EVERY 1-2 HOURS WITH NEEDS MET. DENIES ANY NEEDS AT THIS TIME. CALL LIGHT AND POSSESSIONS IN REACH, BED IN LOW POSITION WITH BED ALARM ACTIVATED.
--- NOTE | 2019-07-22 17:55 | NUR ---
PCU DAYSHIFT SUMMARY PATIENT REMAINED ALERT AND ORIENTED TO SELF AND LOCATION T/O SHIFT. PATIENT REMAINED ON SI MONITORS T/O SHIFT. PATIENT DENIES THOUGHTS OF SELF HARM AT THIS TIME. PATIENT REMAINS ON 4 LPM NC AND CONTINUES TO HAVE COUGH W/ BROWN SPUTUM. PATIENT AMBULATES TO THE BATHROOM WITH STANDBY ASSIST. PATIENT HAS CHRONIC BACK PAIN- EGG CRATE PLACED ON BED FOR COMFORT. CALL LIGHT W/I REACH. WILL CONTINUE TO MONITOR.
--- NOTE | 2019-07-23 05:36 | NUR ---
SHIFT SUMMARY AOX4. VSS. REPORTS -02/20 PAIN ALLOVER BODY, MEDICATED W/ULTRAM & TYLENOL PER ORDERS & PT STATES RELIEF. DENIES N/V OR DYSPNEA @REST. CRACKLES HEARD ON AUSCULTATION TO BILAT LOWER LOBES, E/U RESPIRATIONS, SPO2 >90% ON 3.5 L O2, HAS PRODUCTIVE COUGH W/SMALL AMOUNT THICK RED-BROWN SPUTUM. DENIES SUICIDAL THOUGHTS OR PLANS & STATES "I WOULD NOT DO ANYTHING HERE AT THE HOSPITAL." ON MODERATE RISK PERCAUTIONS & 1:1 VIDEO MONITORING. CALL LIGHT IN REACH & I WCTM UNTIL DAY SHIFT RN ASSUMES CARE.
--- NOTE | 2019-07-23 17:39 | NUR ---
PT IS A&OX4, FOLLOWS COMMANDS. TODAY PT HAS DENIED ANY SUICIDAL THOUGHTS. ROOM RE-CHECKED AND MOD SUICIDE PRECAUTIONS FOLLOWED AND REMOTE MONITORING IN PLACE. LUNGS SOUNDS DIM THROUGH OUT AND CRACKLES IN BILAT BASES. WAS ABLE TO WEAN PT TO 1L NC OF OXYGEN TODAY TO MAINTAIN SPO2 >92%. VSS HAVE REMAINED STABLE. PT REPORTS CHRONIC BACK PAIN AND HEADACHE TREATED WITH PRN MEDS THROUGHOUT THE DAY WITH SOME IMPROVEMENT.
--- NOTE | 2019-07-23 18:14 | NUR ---
TRANSFER OF CARE REPORT CALLED TO OMAR MATHIS ON MEDICAL FLOOR. PT TO TRANSFER TO ROOM 348. BELONGINGS GATHERED AND TRANSFERRED WITH PT. RN NOTIFIED OF PT'S SUICIDE PRECAUTIONS.
--- NOTE | 2019-07-23 18:42 | NUR ---
SHIFT SUMMARY. 1840 PT ARRIVED TO MEDICAL FLOOR VIA W/C BY RN. REPORT RECIEVED PRIOR TO TRANSFER. MODERATE SI ROOM PRECAUTIONS COMPLETED PRIR TO TRANSFER. CAMERA ACTIVATION VERIFIED WITH BUSINESS PROCESS CONSULTANT.
--- NOTE | 2019-07-24 05:33 | NUR ---
DISTRIBUTION FIELD ENGINEER SUMMARY NO ACUTE CHANGES THIS SHIFT. PT AAOX4 AND PLEASANT. STANDBY ASSIST WITH AMBULATION. CALLS APPROPRIATELY FOR ASSISTANCE. REMAINS ON SI PRECAUTIONS AND MONITORED BY CAMERA MONITOR TECHS. TREATED FOR PAIN X2 WITH TRAMADOL PO FOR CHRONIC BACK PAIN. PT HYPERTENSIVE WITH MORNING VITALS. SBP 168. ATTEMPTED TO GIVE PT IV HYDRALAZINE PRN FOR SBP >160, HOWEVER PT POWER GLIDE NOT FUNCTIONING. CALLED DR MOYER TO GET ORDER CHANGED TO PO, HOWEVER DR MOYER STATED TO CONTINUE TO MONITOR AT THIS POINT AND TO NOTIFY HIM IF SBP EXCEEDED 180. PT REPORTS NO BM FOR 3 DAYS. PT RECIEVING COLACE BID. TOLD PT I WOULD ASK DR FOR BOWEL CARE ORDER INCLUDING MOM, DULCOLAX SUPP, OR POSSIBLE ENEMA. PT DENIED ALL OF THESE MEDS. OFFERED PRUNE JUICE WITH BUTTER DRINK MIX AND PT STATED "I THINK I'LL TRY THAT LATER IN THE MORNING". NO OTHER COMPLAINTS FROM PT. WILL CONTINUE TO MONITOR.
--- NOTE | 2019-07-24 08:38 | NUR ---
PT. PLEAASANT COPERATIVE ANS AT EASE.
--- NOTE | 2019-07-24 13:34 | NUR ---
Pt. is jean pierre well encouraged her and offered prayeres
--- NOTE | 2019-07-24 16:39 | NUR ---
NOTIFIED DR. BRADFORD PT. DENIES SI. APPEARS A&O WELL COOPERATIVE,
--- NOTE | 2019-07-24 17:20 | NUR ---
DR. BRADFORD DISCONTINUED PT'S SI PROTOCOL
--- NOTE | 2019-07-24 18:47 | NUR ---
PT. LYING QUIETLY, PT. TAKEN OUT OF SI PRECAUTIONS BY DR. MILLER. NO NOTEABLE CHANGES.
--- NOTE | 2019-07-25 05:27 | NUR ---
SHIFT SUMMARY PT IS A 64 Y/O FEMALE, ADMITTED WITH PNA. SHE IS A&O X 3, THOUGH CONFUSED/ FORGETFUL AT TIMES, AND INDEPENDENT UP TO THE BATHROOM. SHE WAS MEDICATED TWICE FOR GENERALIZED PAIN WITH PRN ULTRAM. NO COMPLAINTS OF NAUSEA OR SOB. PT SLEPT WELL DURING THE NIGHT. VITAL SIGNS STABLE. NO ACUTE CHANGES IN PT CONDITION NOTED. WILL CONTINUE TO MONITOR AND TREAT PER EMAR UNTIL HAND OFF TO DAY SHIFT RN.
--- NOTE | 2019-07-25 13:10 | NUR ---
Pt. is in bed resting, she reports doing well encouraged pt and offered prsyers .
[2019-07-25] MEDS ORDERED: ACET325 PO (13:43)
[2019-07-25] MEDS ORDERED: LISI20 PO (13:43)
[2019-07-25] MEDS ORDERED: LEVO750 PO (13:44)
[2019-07-25] MEDS ORDERED: LAMO25 PO (13:44)
[2019-07-25] MEDS ORDERED: METO50ER PO (13:45)
[2019-07-25] MEDS ORDERED: TRAM50 PO (13:45)
[2019-07-25] MEDS ORDERED: COMBIVENT RESPIM4 GM INH (13:45)
--- NOTE | 2019-07-25 16:00 | NUR ---
PT. DISCHARGED HOME WITH SON, MED LIST AND INSTRUCTIONS GIVEN. APPOINTMENT SET UP WITH NEW PCP. INSTRUCTED HER TO FILL OUT PAPER WORK BEFORE APPOINTMENT.
== END 2019-07-25 16:38 | disposition home or self-care (01) | DRG 871 ==
LOC: ER 16:00 → MEDS 21:04 → ICUE 21:04 → ICUW 21:04 → ICUE 21:43 → PCU 07-17 16:39 → MEDS 07-23 18:35
PROVIDERS: Emergency Medicine; Internal Medicine; Internal Medicine Critical Care Medicine; Physician Assistant; ADMIT Family Medicine
DX: A41.3 Sepsis due to Hemophilus influenzae (principal); J96.21 Acute and chronic respiratory failure with hypoxia; R65.21 Severe sepsis with septic shock; J14 Pneumonia due to Hemophilus influenzae; I47.2 Ventricular tachycardia; E87.1 Hypo-osmolality and hyponatremia; J44.1 Chronic obstructive pulmonary disease with (acute) exacerbation; J44.0 Chronic obstructive pulmonary disease with (acute) lower respiratory infection; Z66 Do not resuscitate; F31.9 Bipolar disorder, unspecified; M81.0 Age-related osteoporosis without current pathological fracture; Z86.59 Personal history of other mental and behavioral disorders; F17.210 Nicotine dependence, cigarettes, uncomplicated; E87.6 Hypokalemia
CPT/HCPCS: 0099U; 36415; 71045; 71046; 71260; 80048; 80053; 80069; 83605; 83690; 83735; 83880; 84100; 84484; 85025; 85610; 85730; 87040; 87070; 87077; 87185; 87186; 87205; 87804; 92526; 92610; 93005; 93010; 93306; 94640; 94644; 94760; 94761; 96361; 96365; 96375; 99285-25; A9270; A9270-GY; C1751; J0282; J0360; J0456; J0696; J1650; J1885; J1940; J1956; J2060; J2405; J2543; J2920; J2930; J3010; J3480; J7030; J7050; J7060; J7120; P9046; Q9967

== ENCOUNTER 2019-08-05 12:48 | Emergency (ER) | payer MEDICARE, OTHER ==
[~2019-08-05] VITALS: Ht 157.5 cm; Wt 57.0 kg
[~2019-08-05 12:48] MED LIST changes: +ACET325 PO; +COMBIVENT RESPIM4 GM INH; +GABA300; +LAMO25 PO; +LEVO750 PO; +METO50ER PO; +TRAM50 PO
[2019-08-05 14:35] LABS: BASOPHILS ABSOLUTE AUTO 0.04 K/mm3 (0.00-0.23); BASOPHILS PERCENT AUTO 0 % (0-2); EOSINOPHILS ABSOLUTE AUTO 0.15 K/mm3 (0.00-0.68); EOSINOPHILS PERCENT AUTO 1 % (0-6); Hemoglobin 12.8 g/dL (11.5-16.0); IMMATURE GRAN ABSOLUTE AUTO 0.14 K/mm3 (0.00-0.10); IMMATURE GRAN PERCENT AUTO 1 % (0-1); LYMPHOCYTES ABSOLUTE AUTO 3.59 K/mm3 (0.84-5.20); LYMPHOCYTES PERCENT AUTO 32 % (21-46); MONOCYTES ABSOLUTE AUTO 1.03 K/mm3 (0.16-1.47); MONOCYTES PERCENT AUTO 9 % (4-13); Mean Corpuscular HGB Conc 32.8 g/dL (31.5-36.5); Mean Corpuscular Volume 94 fL (80-100); Mean Platelet Volume 9.8 fL (9.1-12.4); NEUTROPHILS ABSOLUTE AUTO 6.15 K/mm3 (1.96-9.15); NEUTROPHILS PERCENT AUTO 55 % (41-73); Platelet Count 456 K/mm3 (150-400); RDW Coefficient Variation 13.5 % (11.7-14.2); Red Blood Cell Count 4.13 M/mm3 (3.80-5.20)
[2019-08-05 15:01] LABS: Alanine Aminotransfer (ALT/SGP 23 U/L (12-78); Albumin, Blood 3.2 g/dL (3.4-5.0); Albumin/Globulin Ratio 0.5 (0.8-1.8); Alk Phos 165 U/L (50-136); Anion Gap 7 mmol/L (6-16); Aspartate Aminotrans (AST/SGOT 23 U/L (12-37); Bilirubin, Total 0.3 mg/dL (0.1-1.0); Blood Urea Nitrogen 14 mg/dL (8-24); Bun/Creatinine Ratio 22.8 (12.0-20.0); CO2, Blood 25 mmol/L (21-32); Chloride, Blood 103 mmol/L (98-108); Creatinine, Blood 0.62 mg/dL (0.40-1.00); Globulin, Blood 6.2 g/dL (2.2-4.0); Glomerular Filtration Rate >60 (60-); Glucose, Blood 115 mg/dL (70-99); Potassium, Blood 4.3 mmol/L (3.5-5.5); Sodium, Blood 135 mmol/L (136-145); Total Protein, Blood 9.4 g/dL (6.4-8.2); Troponin I <0.015 ng/mL (0.000-0.040)
[2019-08-05] MEDS ORDERED: LEVO750 PO (15:55)
== END 2019-08-05 16:11 | disposition home or self-care (01) ==
LOC: ER 12:48
PROVIDERS: Physician Assistant
DX: J18.9 Pneumonia, unspecified organism (principal); J44.9 Chronic obstructive pulmonary disease, unspecified; I10 Essential (primary) hypertension; F31.9 Bipolar disorder, unspecified; F17.210 Nicotine dependence, cigarettes, uncomplicated; Z88.5 Allergy status to narcotic agent; Z79.899 Other long term (current) drug therapy
CPT/HCPCS: 36415; 71046; 80053; 83880; 84484; 85025; 93005; 93010; 94644

== ENCOUNTER 2024-12-14 15:44 | Inpatient (IN) | payer MEDICARE ==
[~2024-12-14] VITALS: Ht 157.5 cm; Wt 51.0 kg
[2024-12-14] MEDS ORDERED: FentaNYL Citrate 50 MCG/ML 2 ML Injection IV ONE (17:15)
[2024-12-14 18:48] LABS: BASOPHILS ABSOLUTE AUTO 0.02 K/mm3 (0.00-0.23); BASOPHILS PERCENT AUTO 0 % (0-2); EOSINOPHILS ABSOLUTE AUTO 0.02 K/mm3 (0.00-0.68); EOSINOPHILS PERCENT AUTO 0 % (0-6); Hematocrit 35.7 % (33.0-51.0); Hemoglobin 11.9 g/dL (11.5-16.0); IMMATURE GRAN ABSOLUTE AUTO 0.07 K/mm3 (0.00-0.10); IMMATURE GRAN PERCENT AUTO 1 % (0-1); LYMPHOCYTES ABSOLUTE AUTO 1.40 K/mm3 (0.84-5.20); LYMPHOCYTES PERCENT AUTO 12 % (21-46); MONOCYTES ABSOLUTE AUTO 0.81 K/mm3 (0.16-1.47); MONOCYTES PERCENT AUTO 7 % (4-13); Mean Corpuscular HGB Conc 33.3 g/dL (31.5-36.5); Mean Corpuscular Volume 90 fL (80-100); NEUTROPHILS ABSOLUTE AUTO 9.20 K/mm3 (1.96-9.15); NEUTROPHILS PERCENT AUTO 80 % (41-73); NRBC ABSOLUTE 0.00 K/mm3 (0.00-0.02); NRBC Auto 0.0 /100 WBC (0.0-0.2); Platelet Count 185 K/mm3 (150-400); RDW Coefficient Variation 14.2 % (11.7-14.2); RDW Standard Deviation 46.8 fL (35.1-46.3)
[2024-12-14 19:04] LABS: Anion Gap 12.0 mmol/L (3-11); Blood Urea Nitrogen 33.0 mg/dL (8-24); CO2, Blood 21.0 mmol/L (21-32); Calcium, Blood 9.3 mg/dL (8.5-10.1); Chloride, Blood 108.0 mmol/L (98-108); Creatinine, Blood 0.89 mg/dL (0.40-1.00); Glucose, Blood 108.0 mg/dL (70-99); Potassium, Blood 4.2 mmol/L (3.5-5.5); Sodium, Blood 137.0 mmol/L (136-145)
[2024-12-14] MEDS ORDERED: HYDROmorphone HCl/Pf 1MG SYR IV ONE (19:50)
[2024-12-14] MEDS ORDERED: Ondansetron HCl 2 MG / ML 2ML Vial IV PRN (20:15)
[2024-12-14] MEDS ORDERED: FentaNYL Citrate 50 MCG/ML 2 ML Injection IV PRN (20:15)
[2024-12-14 21:12] VITALS: BP 224/186
[2024-12-14] MEDS ORDERED: HydrALAZINE HCl 20 MG / ML 1ML Vial IV PRN (21:30)
[2024-12-14] MEDS ORDERED: Ipratropium/Albuterol SulF 2.5-0.5MG/3 ML Amp INH PRN (22:05)
[2024-12-14 23:10] VITALS: BP 144/106
[2024-12-15] VITALS (17 sets, daily range): BP systolic 149–249; BP diastolic 71–111
[2024-12-15] MEDS ORDERED: HYDROmorphone HCl/Pf 1MG SYR IV PRN (05:10)
[2024-12-15 05:36] LABS: Hematocrit 38.4 % (33.0-51.0); Hemoglobin 13.1 g/dL (11.5-16.0)
[2024-12-15 06:01] LABS: Prothrombin Time Results 10.9 Sec (9.7-11.5)
[2024-12-15 06:06] LABS: Anion Gap 10.0 mmol/L (3-11); Blood Urea Nitrogen 28.0 mg/dL (8-24); CO2, Blood 24.0 mmol/L (21-32); Calcium, Blood 9.5 mg/dL (8.5-10.1); Chloride, Blood 103.0 mmol/L (98-108); Creatinine, Blood 0.88 mg/dL (0.40-1.00); Glucose, Blood 119.0 mg/dL (70-99); Potassium, Blood 3.1 mmol/L (3.5-5.5); Sodium, Blood 134.0 mmol/L (136-145)
[2024-12-15] MEDS ORDERED: NS 500 ML IV SCH (08:20)
[2024-12-15] MEDS ORDERED: FentaNYL Citrate 50 MCG/ML 2 ML Injection ONE ×2 (11:34→13:49)
[2024-12-15] MEDS ORDERED: Bupivacaine 0.5% W/EPI 1:200000 SDV 30 ML Vial ONE (11:36)
[2024-12-15] MEDS ORDERED: CeFAZolin Sodium 1000 mg Vial ONE (11:59)
[2024-12-15] MEDS ORDERED: Tranexamic Acid 100 ML IV ONE (12:02)
[2024-12-15] MEDS ORDERED: Ketorolac Tromethamine 30mg Vial IV PRN (12:10)
[2024-12-15] MEDS ORDERED: Tranexamic Acid 100 ML IV SCH (12:15)
[2024-12-15] MEDS ORDERED: ePHEDrine Sulfate 50 MG/ML 1ML Injection ONE (12:25)
[2024-12-15] MEDS ORDERED: Dexamethasone Sod Phos 10 MG/ML 1ML VIAL ONE (12:32)
[2024-12-15] MEDS ORDERED: Phenylephrine HCl 100 MCG/ML-NS 10MLSYR (1MG/10ML) ONE (12:45)
[2024-12-15] MEDS ORDERED: Ondansetron HCl 2 MG / ML 2ML Vial ONE (13:24)
[2024-12-15] MEDS ORDERED: HydrALAZINE HCl 20 MG / ML 1ML Vial ONE (13:49)
[2024-12-15] MEDS ORDERED: Ketorolac Tromethamine 30mg Vial ONE (14:29)
[2024-12-16 07:15] VITALS: BP 201/74
[2024-12-16 08:46] VITALS: BP 157/67
[2024-12-16] MEDS ORDERED: Enoxaparin 40 MG/0.4 ML SYR SC SCH (09:00)
[2024-12-16 12:47] LABS: BASOPHILS ABSOLUTE AUTO 0.01 K/mm3 (0.00-0.23); BASOPHILS PERCENT AUTO 0 % (0-2); EOSINOPHILS ABSOLUTE AUTO 0.05 K/mm3 (0.00-0.68); EOSINOPHILS PERCENT AUTO 1 % (0-6); Hematocrit 28.4 % (33.0-51.0); Hemoglobin 9.3 g/dL (11.5-16.0); IMMATURE GRAN ABSOLUTE AUTO 0.04 K/mm3 (0.00-0.10); IMMATURE GRAN PERCENT AUTO 0 % (0-1); LYMPHOCYTES ABSOLUTE AUTO 1.97 K/mm3 (0.84-5.20); LYMPHOCYTES PERCENT AUTO 22 % (21-46); MONOCYTES ABSOLUTE AUTO 1.07 K/mm3 (0.16-1.47); MONOCYTES PERCENT AUTO 12 % (4-13); Mean Corpuscular HGB Conc 32.7 g/dL (31.5-36.5); Mean Corpuscular Volume 91 fL (80-100); NEUTROPHILS ABSOLUTE AUTO 5.91 K/mm3 (1.96-9.15); NEUTROPHILS PERCENT AUTO 65 % (41-73); NRBC ABSOLUTE 0.00 K/mm3 (0.00-0.02); NRBC Auto 0.0 /100 WBC (0.0-0.2); Platelet Count 181 K/mm3 (150-400); RDW Coefficient Variation 14.7 % (11.7-14.2); RDW Standard Deviation 48.7 fL (35.1-46.3)
[2024-12-16 13:04] LABS: Anion Gap 7.0 mmol/L (3-11); Blood Urea Nitrogen 37.0 mg/dL (8-24); CO2, Blood 25.0 mmol/L (21-32); Calcium, Blood 8.6 mg/dL (8.5-10.1); Chloride, Blood 107.0 mmol/L (98-108); Creatinine, Blood 1.4 mg/dL (0.40-1.00); Glucose, Blood 109.0 mg/dL (70-99); Potassium, Blood 3.3 mmol/L (3.5-5.5); Sodium, Blood 136.0 mmol/L (136-145)
[2024-12-16 14:37] VITALS: BP 144/53
[2024-12-16 20:08] VITALS: BP 141/47
[2024-12-17] VITALS (21 sets, daily range): BP systolic 137–224; BP diastolic 54–81
[2024-12-17 06:45] LABS: BASOPHILS ABSOLUTE AUTO 0.03 K/mm3 (0.00-0.23); BASOPHILS PERCENT AUTO 0 % (0-2); EOSINOPHILS ABSOLUTE AUTO 0.05 K/mm3 (0.00-0.68); EOSINOPHILS PERCENT AUTO 1 % (0-6); Hematocrit 31.2 % (33.0-51.0); Hemoglobin 10.3 g/dL (11.5-16.0); IMMATURE GRAN ABSOLUTE AUTO 0.04 K/mm3 (0.00-0.10); IMMATURE GRAN PERCENT AUTO 0 % (0-1); LYMPHOCYTES ABSOLUTE AUTO 1.50 K/mm3 (0.84-5.20); LYMPHOCYTES PERCENT AUTO 17 % (21-46); MONOCYTES ABSOLUTE AUTO 0.77 K/mm3 (0.16-1.47); MONOCYTES PERCENT AUTO 9 % (4-13); Mean Corpuscular HGB Conc 33.0 g/dL (31.5-36.5); Mean Corpuscular Volume 92 fL (80-100); NEUTROPHILS ABSOLUTE AUTO 6.68 K/mm3 (1.96-9.15); NEUTROPHILS PERCENT AUTO 74 % (41-73); NRBC ABSOLUTE 0.00 K/mm3 (0.00-0.02); NRBC Auto 0.0 /100 WBC (0.0-0.2); Platelet Count 169 K/mm3 (150-400); RDW Coefficient Variation 14.8 % (11.7-14.2); RDW Standard Deviation 50.2 fL (35.1-46.3)
[2024-12-17 07:02] LABS: Anion Gap 9.0 mmol/L (3-11); Blood Urea Nitrogen 28.0 mg/dL (8-24); CO2, Blood 22.0 mmol/L (21-32); Calcium, Blood 8.5 mg/dL (8.5-10.1); Chloride, Blood 111.0 mmol/L (98-108); Creatinine, Blood 1.06 mg/dL (0.40-1.00); Glucose, Blood 92.0 mg/dL (70-99); Potassium, Blood 3.4 mmol/L (3.5-5.5); Sodium, Blood 139.0 mmol/L (136-145)
[2024-12-17] MEDS ORDERED: Potassium Chl 20MEQ/Water100ML 100 ML IV STA (08:16)
[2024-12-17] MEDS ORDERED: FentaNYL Citrate 50 MCG/ML 2 ML Injection IV PRN (15:00)
[2024-12-17] MEDS ORDERED: Metoprolol Tartrate 1 MG/ML 5 ML VIAL IV PRN (15:10)
[2024-12-17] MEDS ORDERED: HydrALAZINE HCl 20 MG / ML 1ML Vial IV PRN (15:10)
[2024-12-17 15:52] LABS: pH Blood Venous 7.43 (7.34-7.37)
[2024-12-17] MEDS ORDERED: Ketorolac Tromethamine 30mg Vial IV PRN (16:10)
[2024-12-17 16:38] LABS: Anion Gap 10.0 mmol/L (3-11); Blood Urea Nitrogen 23.0 mg/dL (8-24); CO2, Blood 22.0 mmol/L (21-32); Calcium, Blood 9.4 mg/dL (8.5-10.1); Chloride, Blood 110.0 mmol/L (98-108); Creatinine, Blood 0.95 mg/dL (0.40-1.00); Glucose, Blood 114.0 mg/dL (70-99); Potassium, Blood 3.3 mmol/L (3.5-5.5); Sodium, Blood 139.0 mmol/L (136-145)
[2024-12-17] MEDS ORDERED: Piperacillin/Tazobactam Sod 4.5 GM in NS 100 ML IV SCH (18:00)
[2024-12-18] VITALS (17 sets, daily range): BP systolic 134–186; BP diastolic 57–77
[2024-12-18 02:20] LABS: Source, Urine Clean Catch
[2024-12-18 02:26] LABS: Bilirubin, Urine Neg (Neg); Glucose Qualitative, Urine Neg (Neg); Ketones, Urine 1+ (Neg); Leukocyte Esterase, Urine Neg (Neg); Protein, Urine 2+ (Neg); Specific Gravity, Urine 1.015 (1.003-1.022); Urobilinogen, Urine NORM (Normal)
[2024-12-18 02:31] LABS: Color, Urine Yellow (P-Yellow)
[2024-12-18 02:32] LABS: Red Blood Cells, Urine Not Seen /hpf (0-2); White Blood Cells, Urine 0-2 /hpf (0-5)
[2024-12-18 04:38] LABS: Hematocrit 28.9 % (33.0-51.0); Hemoglobin 9.6 g/dL (11.5-16.0); Mean Corpuscular HGB Conc 33.2 g/dL (31.5-36.5); Mean Corpuscular Volume 92 fL (80-100); NRBC ABSOLUTE 0.00 K/mm3 (0.00-0.02); NRBC Auto 0.0 /100 WBC (0.0-0.2); Platelet Count 177 K/mm3 (150-400); RDW Coefficient Variation 14.9 % (11.7-14.2); RDW Standard Deviation 49.6 fL (35.1-46.3)
[2024-12-18 05:22] LABS: BAND PERCENT MAN 9 % (0-8); BASOPHILS ABSOLUTE MAN 0.00 K/mm3 (0.00-0.23); BASOPHILS PERCENT MAN 0 % (0-2); EOSINOPHILS ABSOLUTE MAN 0.00 K/mm3 (0.00-0.68); EOSINOPHILS PERCENT MAN 0 % (0-6); LYMPHOCYTES ABSOLUTE MAN 0.37 K/mm3 (0.84-5.20); LYMPHOCYTES PERCENT MAN 4 % (21-46); MONOCYTES ABSOLUTE MAN 0.66 K/mm3 (0.16-1.47); MONOCYTES PERCENT MAN 7 % (4-13); NEUTROPHILS ABSOLUTE MAN 8.40 K/mm3 (1.96-9.15); SEG NEUTROPHILS PERCENT MAN 80 % (41-73)
[2024-12-18] MEDS ORDERED: Piperacillin/Tazobactam Sod 4.5 GM in NS 100 ML IV SCH (18:00)
[2024-12-19] VITALS (8 sets, daily range): BP systolic 144–186; BP diastolic 56–72
[2024-12-19 08:55] LABS: BASOPHILS ABSOLUTE AUTO 0.02 K/mm3 (0.00-0.23); BASOPHILS PERCENT AUTO 0 % (0-2); Hematocrit 29.6 % (33.0-51.0); Hemoglobin 9.8 g/dL (11.5-16.0); LYMPHOCYTES ABSOLUTE AUTO 1.06 K/mm3 (0.84-5.20); LYMPHOCYTES PERCENT AUTO 10 % (21-46); MONOCYTES ABSOLUTE AUTO 0.60 K/mm3 (0.16-1.47); MONOCYTES PERCENT AUTO 6 % (4-13); Mean Corpuscular HGB Conc 33.1 g/dL (31.5-36.5); Mean Corpuscular Volume 92 fL (80-100); NRBC ABSOLUTE 0.00 K/mm3 (0.00-0.02); NRBC Auto 0.0 /100 WBC (0.0-0.2); Platelet Count 191 K/mm3 (150-400); RDW Coefficient Variation 14.6 % (11.7-14.2); RDW Standard Deviation 49.5 fL (35.1-46.3)
[2024-12-19 08:56] LABS: EOSINOPHILS ABSOLUTE AUTO 0.22 K/mm3 (0.00-0.68); EOSINOPHILS PERCENT AUTO 2 % (0-6); IMMATURE GRAN ABSOLUTE AUTO 0.13 K/mm3 (0.00-0.10); IMMATURE GRAN PERCENT AUTO 1 % (0-1); NEUTROPHILS ABSOLUTE AUTO 8.95 K/mm3 (1.96-9.15); NEUTROPHILS PERCENT AUTO 81 % (41-73)
[2024-12-19 09:22] LABS: Anion Gap 6.0 mmol/L (3-11); Blood Urea Nitrogen 23.0 mg/dL (8-24); CO2, Blood 26.0 mmol/L (21-32); Calcium, Blood 8.2 mg/dL (8.5-10.1); Chloride, Blood 108.0 mmol/L (98-108); Creatinine, Blood 1.16 mg/dL (0.40-1.00); Glucose, Blood 139.0 mg/dL (70-99); Potassium, Blood 2.7 mmol/L (3.5-5.5); Sodium, Blood 137.0 mmol/L (136-145)
[2024-12-19] MEDS ORDERED: Potassium Chl 20MEQ/Water100ML 100 ML IV SCH (10:30)
[2024-12-19] MEDS ORDERED: ASPI325 PO (15:14)
[2024-12-20 04:41] LABS: BASOPHILS ABSOLUTE AUTO 0.02 K/mm3 (0.00-0.23); BASOPHILS PERCENT AUTO 0 % (0-2); EOSINOPHILS ABSOLUTE AUTO 0.27 K/mm3 (0.00-0.68); EOSINOPHILS PERCENT AUTO 4 % (0-6); Hematocrit 27.1 % (33.0-51.0); Hemoglobin 8.9 g/dL (11.5-16.0); IMMATURE GRAN ABSOLUTE AUTO 0.11 K/mm3 (0.00-0.10); IMMATURE GRAN PERCENT AUTO 2 % (0-1); LYMPHOCYTES ABSOLUTE AUTO 1.12 K/mm3 (0.84-5.20); LYMPHOCYTES PERCENT AUTO 16 % (21-46); MONOCYTES ABSOLUTE AUTO 0.51 K/mm3 (0.16-1.47); MONOCYTES PERCENT AUTO 7 % (4-13); Mean Corpuscular HGB Conc 32.8 g/dL (31.5-36.5); Mean Corpuscular Volume 91 fL (80-100); NEUTROPHILS ABSOLUTE AUTO 5.10 K/mm3 (1.96-9.15); NEUTROPHILS PERCENT AUTO 72 % (41-73); NRBC ABSOLUTE 0.00 K/mm3 (0.00-0.02); NRBC Auto 0.0 /100 WBC (0.0-0.2); Platelet Count 199 K/mm3 (150-400); RDW Coefficient Variation 14.6 % (11.7-14.2); RDW Standard Deviation 49.1 fL (35.1-46.3)
[2024-12-20 04:45] VITALS: BP 170/72
[2024-12-20 06:52] LABS: Anion Gap 7.0 mmol/L (3-11); Blood Urea Nitrogen 22.0 mg/dL (8-24); CO2, Blood 23.0 mmol/L (21-32); Calcium, Blood 8.0 mg/dL (8.5-10.1); Chloride, Blood 110.0 mmol/L (98-108); Creatinine, Blood 1.15 mg/dL (0.40-1.00); Glucose, Blood 127.0 mg/dL (70-99); Potassium, Blood 3.3 mmol/L (3.5-5.5); Sodium, Blood 137.0 mmol/L (136-145)
[2024-12-20 07:25] VITALS: BP 175/61
[2024-12-20 10:07] VITALS: BP 172/64
[2024-12-20 11:17] VITALS: BP 190/69
[2024-12-20 12:08] VITALS: BP 164/64
== END 2024-12-20 12:46 | DRG 480 ==
LOC: ER 15:44 → SURS 20:11 → PCU 20:11 → SURS 21:45 → PCU 12-17 16:30
PROVIDERS: Internal Medicine; Orthopaedic Surgery; Student in an Organized Health Care Education/Training Program; ADMIT Student in an Organized Health Care Education/Training Program
PROC: 0QS736Z Reposition Left Upper Femur with Intramedullary Internal Fixation Device, Percutaneous Approach (ICD-10-PCS; principal; 2024-12-15 11:30)
DX: S72.142A Displaced intertrochanteric fracture of left femur, initial encounter for closed fracture (principal); G93.41 Metabolic encephalopathy; J96.01 Acute respiratory failure with hypoxia; I47.10 Supraventricular tachycardia, unspecified; D62 Acute posthemorrhagic anemia; I16.0 Hypertensive urgency; Z66 Do not resuscitate; E87.6 Hypokalemia; I10 Essential (primary) hypertension; J44.9 Chronic obstructive pulmonary disease, unspecified; F31.9 Bipolar disorder, unspecified; G89.4 Chronic pain syndrome; F17.210 Nicotine dependence, cigarettes, uncomplicated; Z88.5 Allergy status to narcotic agent; Z79.891 Long term (current) use of opiate analgesic; Z79.899 Other long term (current) drug therapy; Z98.891 History of uterine scar from previous surgery; W18.30XA Fall on same level, unspecified, initial encounter; Y92.002 Bathroom of unspecified non-institutional (private) residence as the place of occurrence of the external cause
CPT/HCPCS: 36415; 71045; 73502; 80048; 81001; 82803; 83880; 85014; 85018; 85025; 85610; 86850; 86900; 86901; 92526; 92610; 93005; 93010; 94762; 96374; 97110; 97161; 97165; 97530; 99285-25; A6590; A9270; C1713; C1751; C1769; J0360; J0456; J0690; J1100; J1171; J1650; J1885; J2371; J2405; J2543; J2704; J3010; J3480; J7040; J7050; J7120

== ENCOUNTER 2024-12-22 10:51 | Emergency (ER) | payer MEDICARE ==
[~2024-12-22] VITALS: Ht 165.1 cm; Wt 63.5 kg
[~2024-12-22 10:51] MED LIST changes: +ASPI325 PO
[2024-12-22 10:57] VITALS: BP 143/64
[2024-12-22] MEDS ORDERED: OxyCODONE 7.5 mg/Acetam 325 mg TABLET PO ONE (11:00)
== END 2024-12-22 13:15 | disposition home or self-care (01) ==
LOC: ER 10:51
DX: I10 Essential (primary) hypertension (principal); J44.9 Chronic obstructive pulmonary disease, unspecified; M25.552 Pain in left hip; Z96.642 Presence of left artificial hip joint; Z88.5 Allergy status to narcotic agent; Z79.2 Long term (current) use of antibiotics; Z79.82 Long term (current) use of aspirin
CPT/HCPCS: 99283; A9270